=== PATIENT | female | born 1990 ===

== ENCOUNTER 2017-07-18 14:26 | Emergency (ER) | payer OTHER ==
[~2017-07-18 14:26] MED LIST: ISOVUE-370 76%-LOCM 1 ML ONE
[2017-07-18 15:52] LABS: #Basophils 0.1 thou/uL (0.0-0.2); #Eosinphils 0.3 thou/uL (0.0-0.7); #Monocytes 0.6 thou/uL (0.11-0.59); #Neutrophils 7.5 thou/uL (1.40-6.50); %Basophils 0.8 % (0.0-1.0); %Eosinophils 2.2 % (0.0-10.0); %Lymphocytes 26.1 % (21.0-51.0); %Monocytes 5.2 % (0.0-10.0); %Neutrophils 65.7 % (42.0-75.0); Hemoglobin 13.2 g/dL (12.0-16.0); Mean Corpuscular HGB CONC 32.2 g/dL (32.0-36.0); Mean Corpuscular Hemoglobin 27.4 pg (27.0-31.0); Mean Platelet Volume 7.5 fL (7.4-10.4); Platelet Count 442 thou/uL (130-400); RBC Distribution Width 14.6 % (11.5-14.5); White Blood Cell (WBC) Count 11.4 thou/uL (4.8-10.8)
[2017-07-18 16:07] LABS: BHCG - Serum Negative (NEGATIVE); Pregs Control Background? CLEAR/WHITE (CLR/WHITE); Pregs Control Bar Appear? YES (CONTROL BAR)
[2017-07-18 16:10] LABS: ALT (SGPT) 16 U/L (8-55); AST (SGOT) 12 U/L (5-34); Albumin 2.4 g/dL (3.5-5.0); Alkaline Phosphatase 78 U/L (40-150); Anion Gap 12 mmol/L (10-20); BUN (Urea Nitrogen) 8 mg/dL (7.0-18.7); Bilirubin, Total Less than 0.2 mg/dL (0.2-1.2); Calc. Creatinine Clearance 0 mL/min (70-130); Calcium 8.7 mg/dL (7.8-10.44); Carbon Dioxide 22 mmol/L (22-29); Chloride 108 mmol/L (98-107); Estimated GFR-MDRD Greater than 90; Globulin 3.8 g/dL (2.4-3.5); Glucose 84 mg/dL (70-105); Potassium 4.1 mmol/L (3.5-5.1); Protein, Total 6.2 g/dL (6.0-8.3); Sodium 138 mmol/L (136-145)
--- NOTE | 2017-07-18 16:57 | CT ---
CT PULMONARY ANGIOGRAM WITH IV CONTRAST AND 3D POSTPROCESSIN07/18/17 HISTORY: Elevated D-dimer and bilateral feet swelling. FINDINGS: No filling defect is seen in the contrast enhanced pulmonary arterial vasculature to suggest pulmonar y embolism. The thoracic aorta is well opacified without aneurysm or dissection. No pleural or perica rdial effusions are seen. No pneumothoraces, lung consolidation or pulmonary nodules/masses are ident ified. No acute osseous abnormalities are noted. IMPRESSION: No CT evidence of pulmonary embolism. POS: [facility]
--- NOTE | 2017-09-01 | EKG ---
Test Reason : Blood Pressure : / mmHG Vent. Rate : 088 BPM Atrial Rate : 088 BPM P-R Int : 148 ms QRS Dur : 078 ms QT Int : 346 ms P-R-T Axes : 028 032 014 degrees QTc Int : 418 ms Normal sinus rhythm Normal ECG Confirmed by MESSI KELLY ([id number]), clinical editor DOREEN ARREOLA ([id number] on 08/31/2017 11:59:37 PM Referred By: Confirmed By:MESSI KELLY
== END 2017-07-18 18:26 | disposition home or self-care (01) ==
LOC: ERS 14:26
DX: R07.9 Chest pain, unspecified (principal); R60.0 Localized edema; M79.89 Other specified soft tissue disorders; R94.6 Abnormal results of thyroid function studies
CPT/HCPCS: 36415; 71275; 80053; 84439; 84443; 84703; 85025; 85379; 87086; 93005